=== PATIENT | male | born 1935 | race Caucasian/White ===

== ENCOUNTER → 2018-10-16 20:22 | Outpatient (CLI) | payer MEDICARE, OTHER ==
[2014-06-12 07:40] VITALS: BMI 26.5
[~2018-10-16 20:22] MED LIST: BUMEX2 MG PO; COREG25 MG PO; FLOMAX0.4 MG PO; GLUCOSAMINE & C1 CAP PO; HYDROCODONE-APA1 TAB PO; KLOR-CON M2020 MEQ PO; LANOXIN125 MCG PO; METOLAZONE5 MG PO; NEURONTIN 300300 MG PO; PRADAXA150 MG PO; PRILOSEC20 MG PO; VITAMIN B COMPL1 TAB PO; ZESTRIL10 MG PO; [UNRECOGNIZED DRUG - OTHER] PO
[2018-10-16 21:32] LABS: ANION GAP 12.7 mmol/L (8-16); CALCIUM 7.9 mg/dL (8.5-10.1); CARBON DIOXIDE 30.4 mmol/L (21.0-32.0); CREATININE - SERUM 3.1 mg/dL (0.6-1.3); POTASSIUM - SERUM 3.1 mmol/L (3.5-5.1)
== END | disposition home or self-care (01) ==
LOC: D.LABREF 20:22
PROVIDERS: ATTEND Internal Medicine Nephrology
DX: I95.9 Hypotension, unspecified (principal); I72.9 Aneurysm of unspecified site

== ENCOUNTER → 2019-05-16 16:58 | Outpatient (CLI) | payer MEDICARE, OTHER ==
[2019-03-08 13:13] VITALS: BMI 26.0
[~2019-05-16 16:58] MED LIST changes: +ALDACTONE25 MG PO; +AMIODARONE HCL200 MG PO; +ELIQUIS2.5 MG PO; +GUAIFENESI100 MG/5 M PO; +RENAGEL800 MG PO; +VITAMIN D3 PO; +[UNRECOGNIZED DRUG - OTHER] PO
[2019-05-16 17:09] LABS: BASOPHILS 0.3 % (0-2); HEMATOCRIT 36.2 % (42.0-54.0); HEMOGLOBIN 11.5 g/dL (13.5-17.5); IMMATURE GRANULOCYTES 5.7 % (0-5); MCH 29.6 pg (26.0-34.0); MCHC 31.8 g/dL (31.0-37.0); MCV 93.1 fL (80.0-100.0); MEAN PLATELET VOLUME 8.6 fL (7.4-10.4); RBC 3.89 10x6/uL (4.20-6.10); RDW 14.5 % (11.5-14.5)
[2019-05-16 17:13] LABS: PLATELET COUNT 354 10x3/uL (130-400)
[2019-05-16 17:21] LABS: ANION GAP 15.1 mmol/L (8-16); CALCIUM 9.9 mg/dL (8.5-10.1); CARBON DIOXIDE 25.1 mmol/L (21.0-32.0); CREATININE - SERUM 3.9 mg/dL (0.6-1.3); POTASSIUM - SERUM 4.2 mmol/L (3.5-5.1)
== END | disposition home or self-care (01) ==
LOC: D.LABREF 16:58
PROVIDERS: ATTEND Internal Medicine Nephrology
DX: I50.9 Heart failure, unspecified (principal); N18.9 Chronic kidney disease, unspecified

== ENCOUNTER → 2019-08-04 21:32 | Outpatient (CLI) | payer MEDICARE, OTHER ==
[2019-03-08 13:13] VITALS: BMI 26.0
[2019-08-04 21:54] LABS: BASOPHILS 0.2 % (0-2); EOSINOPHILS 3.3 % (0-7); HEMATOCRIT 32.3 % (42.0-54.0); HEMOGLOBIN 10.1 g/dL (13.5-17.5); IMMATURE GRANULOCYTES 0.8 % (0-5); LYMPHOCYTES 21.7 % (15-50); MCH 29.4 pg (26.0-34.0); MCHC 31.3 g/dL (31.0-37.0); MCV 93.9 fL (80.0-100.0); MEAN PLATELET VOLUME 8.8 fL (7.4-10.4); RBC 3.44 10x6/uL (4.20-6.10); WBC 4.8 10x3/uL (4.8-10.8)
[2019-08-04 22:03] LABS: PLATELET COUNT 201 10x3/uL (130-400)
[2019-08-04 22:11] LABS: ANION GAP 9.3 mmol/L (8-16); CALCIUM 7.3 mg/dL (8.5-10.1); CREATININE - SERUM 3.7 mg/dL (0.6-1.3)
[2019-08-04 22:32] LABS: POTASSIUM - SERUM 2.3 mmol/L (3.5-5.1)
== END | disposition home or self-care (01) ==
LOC: D.LABREF 21:32
PROVIDERS: ATTEND Internal Medicine Nephrology
DX: I13.0 Hypertensive heart and chronic kidney disease with heart failure and stage 1 through stage 4 chronic kidney disease, or unspecified chronic kidney disease (principal); I50.42 Chronic combined systolic (congestive) and diastolic (congestive) heart failure

== ENCOUNTER → 2019-08-05 19:40 | Outpatient (CLI) | payer MEDICARE, OTHER ==
[2019-03-08 13:13] VITALS: BMI 26.0
[2019-08-05 20:16] LABS: BASOPHILS 0.4 % (0-2); EOSINOPHILS 3.5 % (0-7); HEMOGLOBIN 9.6 g/dL (13.5-17.5); IMMATURE GRANULOCYTES 0.9 % (0-5); LYMPHOCYTES 24.4 % (15-50); MCH 28.9 pg (26.0-34.0); MCV 93.4 fL (80.0-100.0); MEAN PLATELET VOLUME 8.9 fL (7.4-10.4); MONOCYTES 11.8 % (2-11); PLATELET COUNT 208 10x3/uL (130-400); RBC 3.32 10x6/uL (4.20-6.10); WBC 5.4 10x3/uL (4.8-10.8)
[2019-08-05 20:24] LABS: ANION GAP 13.3 mmol/L (8-16); CALCIUM 7.3 mg/dL (8.5-10.1); CARBON DIOXIDE 31.8 mmol/L (21.0-32.0); CREATININE - SERUM 3.5 mg/dL (0.6-1.3)
[2019-08-05 20:25] LABS: POTASSIUM - SERUM 3.1 mmol/L (3.5-5.1)
== END | disposition home or self-care (01) ==
LOC: D.LABREF 19:40
PROVIDERS: ATTEND Internal Medicine Nephrology
DX: I23.0 Hemopericardium as current complication following acute myocardial infarction (principal); I09.81 Rheumatic heart failure; I50.42 Chronic combined systolic (congestive) and diastolic (congestive) heart failure

== ENCOUNTER → 2019-08-07 12:31 | Outpatient (CLI) | payer MEDICARE, OTHER ==
[2019-03-08 13:13] VITALS: BMI 26.0
[2019-08-07 17:49] LABS: ANION GAP 12.9 mmol/L (8-16); CALCIUM 7.8 mg/dL (8.5-10.1); CARBON DIOXIDE 29.5 mmol/L (21.0-32.0); CREATININE - SERUM 2.9 mg/dL (0.6-1.3); POTASSIUM - SERUM 3.4 mmol/L (3.5-5.1)
== END | disposition home or self-care (01) ==
LOC: D.LABREF 12:31
PROVIDERS: ATTEND Internal Medicine Nephrology
DX: I13.0 Hypertensive heart and chronic kidney disease with heart failure and stage 1 through stage 4 chronic kidney disease, or unspecified chronic kidney disease (principal); I09.81 Rheumatic heart failure; I50.42 Chronic combined systolic (congestive) and diastolic (congestive) heart failure

== ENCOUNTER → 2019-09-01 18:31 | Outpatient (CLI) | payer MEDICARE, OTHER ==
[2019-03-08 13:13] VITALS: BMI 26.0
[2019-09-01 20:13] LABS: ANION GAP 8.3 mmol/L (8-16); CALCIUM 7.5 mg/dL (8.5-10.1); CARBON DIOXIDE 29.8 mmol/L (21.0-32.0); CREATININE - SERUM 3.2 mg/dL (0.6-1.3); POTASSIUM - SERUM 4.1 mmol/L (3.5-5.1)
== END | disposition home or self-care (01) ==
LOC: D.LABREF 18:31
PROVIDERS: ATTEND Internal Medicine Nephrology
DX: I73.00 Raynaud's syndrome without gangrene (principal)

== ENCOUNTER → 2019-10-06 19:37 | Outpatient (CLI) | payer MEDICARE, OTHER ==
[2019-03-08 13:13] VITALS: BMI 26.0
[2019-10-06 20:07] LABS: ANION GAP 10.6 mmol/L (8-16); CALCIUM 8.4 mg/dL (8.5-10.1); CARBON DIOXIDE 30.3 mmol/L (21.0-32.0); CREATININE - SERUM 2.8 mg/dL (0.6-1.3); POTASSIUM - SERUM 3.9 mmol/L (3.5-5.1)
== END | disposition home or self-care (01) ==
LOC: D.LABREF 19:37
PROVIDERS: ATTEND Internal Medicine Interventional Cardiology
DX: I09.81 Rheumatic heart failure (principal); I13.0 Hypertensive heart and chronic kidney disease with heart failure and stage 1 through stage 4 chronic kidney disease, or unspecified chronic kidney disease